=== PATIENT | female | born 1995 | race Two or more races ===

== ENCOUNTER 2024-10-03 10:44 | Inpatient (IN) | payer OTHER ==
[2024-10-03 21:19] VITALS: BMI 33.6
[2024-10-03] MEDS: Lactated Ringer's 1,000 ML IV SCH (21:48)
[2024-10-03] MEDS ORDERED: Tranexamic Acid 1,000 MG/10 ML VIAL IVP PRN (22:20)
[2024-10-03] MEDS ORDERED: HYDROcodone/Acetaminophen 5/325 mg Tablet PO PRN (22:20)
[2024-10-03] MEDS ORDERED: Diphenoxylate HCl/Atropine Tablet PO PRN (22:20)
[2024-10-03] MEDS ORDERED: Misoprostol 200 MCG TAB PR PRN (22:20)
[2024-10-03] MEDS ORDERED: Carboprost 250 MCG/ML AMP IM PRN (22:20)
[2024-10-03] MEDS ORDERED: hydrALAZINE 20 MG/ML VIAL SLOW IVP PRN (22:20)
[2024-10-03] MEDS ORDERED: Ondansetron PF 4 MG/2 ML Vial IVP PRN (22:20)
[2024-10-03] MEDS ORDERED: Lidocaine 1% (PF) 30 ML VIAL SC PRN (22:20)
[2024-10-03] MEDS ORDERED: Promethazine HCl 25 MG/ML VIAL IM PRN (22:20)
[2024-10-03] MEDS ORDERED: Methylergonovine 0.2 MG/ML VIAL IM PRN (22:20)
[2024-10-03] MEDS ORDERED: fentaNYL 50 mcg/mL 1 mL Vial SLOW IVP PRN (22:20)
[2024-10-03] MEDS ORDERED: Oxytocin 30 units/NS 500 ML 500 ML IV SCH ×3 (22:30)
[2024-10-03 22:41] LABS: Hematocrit 35.5 % (34.9-44.5); Hemoglobin 12.4 g/dL (12.0-15.5); Mean Corpuscular HGB CONC 34.9 g/dL (32.0-36.0); Mean Corpuscular Hemoglobin 32.6 pg (27.0-33.0); Mean Corpuscular Volume 93.4 fL (81.6-98.3); Mean Platelet Volume 12.1 fL (7.4-10.4); Platelet Count 99 10x3/uL (150-450); RBC Distribution Width 13.7 % (11.5-14.5); White Blood Cell (WBC) Count 13.2 10x3/uL (3.5-10.5)
[2024-10-03] MEDS: Misoprostol 100 MCG TAB PO SCH (22:45)
[2024-10-03] MEDS: Acetaminophen 500 MG TAB PO PRN (22:54)
[2024-10-03 23:11] LABS: HBsAg Index 0.22 S/CO (0-0.99); Hep B Surf Ag - L&D Non-Reactive S/CO (NonReactive)
[2024-10-03 23:12] LABS: Syphilis Antibody Nonreactive (Nonreactive); Syphilis Antibody Index 0.05 S/CO (<1.00 Non-Reactive)
[2024-10-04] MEDS: Ibuprofen 800 MG TAB PO PRN (17:36)
[2024-10-04] MEDS ORDERED: Promethazine HCl 25 MG/ML VIAL IM PRN (18:30)
[2024-10-04] MEDS ORDERED: Lanolin Ointment 7 GM TUBE TOP PRN (18:30)
[2024-10-04] MEDS ORDERED: Bisacodyl 10 MG SUPP PR PRN (18:30)
[2024-10-04] MEDS ORDERED: hydrALAZINE 20 MG/ML VIAL SLOW IVP PRN (18:30)
[2024-10-04] MEDS ORDERED: diphenhydrAMINE 25 MG CAP PO PRN (18:30)
[2024-10-04] MEDS ORDERED: Ondansetron PF 4 MG/2 ML Vial IVP PRN (18:30)
[2024-10-04] MEDS ORDERED: Milk Of Magnesia 30 ML UDCUP PO PRN (18:30)
[2024-10-04] MEDS: HYDROcodone/Acetaminophen 5/325 mg Tablet PO PRN (19:42)
[2024-10-04] MEDS: Docusate 100 MG CAP PO SCH (19:42)
[2024-10-04] MEDS: Ferrous Sulfate 325 MG TAB PO SCH (19:42)
[2024-10-04] MEDS: Benzocaine-Menthol 82.5 ML CAN TOP PRN (19:43)
[2024-10-04] MEDS: fentaNYL/Ropivacaine Epidural 100 ML ONE (21:03)
[2024-10-05] MEDS: Ibuprofen 800 MG TAB PO SCH (01:29)
[2024-10-05] MEDS: Prenatal Vitamin 1 TAB PO SCH (08:25)
[2024-10-05] MEDS: Ferrous Sulfate 325 MG TAB PO SCH (08:26)
[2024-10-05] MEDS: Boostrix 0.5 ML (Tdap) VIAL (>/=7 yrs of age) IM ONE (08:27)
[2024-10-06 10:15] VITALS: BP 105/69; TEMP 98.1
== END 2024-10-06 13:40 | disposition home or self-care (01) | DRG 807 ==
LOC: CSHLD 20:28 → CSHPP 10-04 18:50
PROVIDERS: ADMIT Family Medicine; ATTEND Family Medicine
PROC: 10907ZC Drainage of Amniotic Fluid, Therapeutic from Products of Conception, Via Natural or Artificial Opening (ICD-10-PCS; principal; 2024-10-04)
PROC: 10E0XZZ Delivery of Products of Conception, External Approach (ICD-10-PCS; 2024-10-04)
PROC: 0UQMXZZ Repair Vulva, External Approach (ICD-10-PCS; 2024-10-04)
DX: O48.0 Post-term pregnancy (principal); Z37.0 Single live birth; Z3A.40 40 weeks gestation of pregnancy; O69.81X0 Labor and delivery complicated by cord around neck, without compression, not applicable or unspecified; O70.0 First degree perineal laceration during delivery
CPT/HCPCS: 51702; 85027; 86780; 86850; 86900; 86901; 87340; J7120